=== PATIENT | male | born 1945 | race Caucasian/White ===

== ENCOUNTER 2025-10-25 16:34 | Inpatient (IN) ==
--- NOTE | 2025-10-25 16:46 | Emergency Department Note ---
Impression & Plan Acute lower GI bleeding, Abdominal pain, acute, left lower quadrant, Anticoagulant long-term use, Colitis ED Provider Note NAME: LE MENDIETA AGE: 80 SEX: M : 1945 ARRIVES VIA: Walk-In INFORMANT: Patient, the patient's son ED PROVIDER(S): Catarino Salmon DO CHIEF COMPLAINT: GI bleeding HPI: The patient is a 80-year-old male who presented to the emergency department with his son for evaluation of GI bleeding. The patient's been having constipation and left lower quadrant abdominal pain. Initially he thought it was rectal bleeding because of an external source but then started having maroon stool. He presented to the emergency department with his son for an evaluation. He does have a history of atrial fibrillation. He takes warfarin. The patient denies having any vomiting or fever. ROS: See above HPI for pertinent positives & negatives. A total of 10 systems reviewed and were otherwise negative. PAST MEDICAL HISTORY: See Below PAST SURGICAL HISTORY: See Below FAMILY HISTORY: See Below SOCIAL HISTORY: See Below HOME MEDICATIONS: See Below ALLERGIES: See Below VITALS: See Below PHYSICAL EXAMINATION: GENERAL: Patient is awake alert in no acute distress patient is resting comfortably and showing no signs of anxiety EYES: The conjunctivae are clear. The pupils are round and reactive. EARS, NOSE, MOUTH AND THROAT: The nose is without any evidence of any deformity. NECK: The neck is nontender and supple. RESPIRATORY: Normal respiratory effort is noted there is no evidence of wheezing rhonchi or rales CARDIOVASCULAR: Regular rate and rhythm noted there no murmurs rubs or gallops normal S1 normal S2. GASTROINTESTINAL: The abdomen is soft and mildly distended. There is left lower quadrant tenderness to palpation which is moderate. Rectal exam revealed gross blood per rectum. MUSCULOSKELETAL/EXTREMITIES: There is no evidence of gross deformity full range of motion is noted in the hips and shoulders. SKIN: Chronic venous stasis changes were noted. There is no calf tenderness elicited. Skin was warm and dry. NEUROLOGIC: Patient is awake alert and oriented x3 MEDICAL DECISION MAKING: The patient is a 80-year-old male who presented to the emergency department for an evaluation of rectal bleeding. The patient did have left-sided abdominal pain on physical exam. I discussed the patient's laboratory and radiographic studies with him. Ultimately the patient was found to have signs of colitis on CT. It is possible this represents some sort of diverticular bleed. The CT did not appear to show any acute bleeding or extravasation of dye. I do feel the patient would be a good candidate for inpatient management at our facility at this time. [facility] have agreed to evaluate the patient in the emergency department for further management and disposition. Triage Nursing notes reviewed. Prior medical records reviewed Vital Signs: reviewed and remarkable for no significant abnormalities Differential diagnosis: Diverticulosis, AVM, coagulopathy, colitis, inflammatory bowel disease, malignancy, Juanita-Vergara tear, esophagitis, peptic ulcer disease, variceal bleed, gastritis, epistaxis, fissure, hemorrhoids, as well as other pathologies. ER treatment provided: See below Diagnostics interpreted by me: ECG: EKG was obtained in the emergency department. My interpretation is normal sinus rhythm at 90 bpm. There is no ectopy. There is no acute ST segment abnormalities noted. QTc was 467 ms. Cardiac Monitoring: An order was placed for continuous cardiac monitoring. The monitor shows a rate of 99 bpm with sinus rhythm. Laboratory studies: As stated above and show below. Imaging studies: See below. Radiographic imaging was reviewed by myself Consultation(s): I discussed this case with Ksenia who [facility]. Past Med/Surg History Problem List (Updated 10/25/25 @ 20:43 by Catarino Salmon DO) Anticoagulant long-term use (Acute) Abdominal pain, acute, left lower quadrant (Acute) Acute lower GI bleeding (Acute) Colitis (Acute) Abdominal pain Rectal bleeding Medical History BPH (benign prostatic hyperplasia) KATE (obstructive sleep apnea) Obesity HTN (hypertension) Atrial fibrillation Surgical History History of placement of ear tubes History of hernia repair Hx of tonsillectomy History of colonoscopy Family History (Updated 10/25/25 @ 19:38 by Angela Martinez PA-C) Mother Diabetes Brother Cancer esophageal cancer Social History Smoking Status: Never smoker Preferred Language: Malian Feels Safe at Home: Yes Allergies Allergies Allergy/AdvReac Type Severity Reaction Status Date / Time No Known Allergies Allergy Unverified 10/25/25 18:05 Home Meds Home Medications Medication Instructions Recorded Confirmed amlodipine 10 mg tablet 10 mg PO DAILY 10/25/25 10/25/25 brimonidine 0.2 % eye drops 1 drp ophthalmic (eye) DIRECTED 10/25/25 10/25/25 latanoprost 0.005 % eye drops 1 drp ophthalmic (eye) HS 10/25/25 10/25/25 lisinopril 10 mg tablet 10 mg PO DAILY 10/25/25 10/25/25 omeprazole 40 mg capsule,delayed 40 mg PO DAILY 10/25/25 10/25/25 release tamsulosin 0.4 mg capsule 0.4 mg PO QPM 10/25/25 10/25/25 warfarin 5 mg tablet 5 mg PO Q OTHER DAY 10/25/25 10/25/25 warfarin 5 mg tablet 7.5 mg PO Q OTHER DAY 10/25/25 10/25/25 Results & Data (ED) Vital Signs Vital Signs - 24 hr 10/25/25 16:38 10/25/25 16:57 10/25/25 18:36 Temperature 36.7 C Temperature Source Temporal Artery Scan Pulse Rate 105 H Pulse Rate [Apical] 92 H Pulse Rhythm [Apical] Regular Pulse Strength [Apical] Normal Respiratory Rate 18 20 Respiratory Effort / Characteristics Non-Labored Spontaneous Non-Labored Spontaneous Respiratory Depth Normal Normal Respiratory Pattern Regular Blood Pressure 122/73 Blood Pressure [Right Arm] 127/78 Blood Pressure Mean 89 Blood Pressure Mean [Right Arm] 94 Pulse Oximetry 98 95 94 Oxygen Delivery Method Room Air Room Air Room Air Sepsis Recent Fever Within 48 Hours No Sepsis New/Unexplained Change in Mental Status No Sepsis Action Taken by Nursing No Action Required Home Medications Current Medication List: was personally reviewed by me Laboratory Data Attestation: I reviewed the patient's lab results. 10/25/25 16:57 10/25/25 16:57 Lab Results 10/25/25 10/25/25 10/25/25 Range/Units 16:57 17:08 17:13 WBC 22.25 H (4.8-10.8) K/ul RBC 6.00 (4.70-6.10) M/uL Hgb 18.6 H (14.0-18.0) g/dL POC Hgb 17.7 (14.0-18.0) g/dl Hct 50.6 (42.0-52.0) % POC Hct 52 (42-52) % MCV 84.3 (80.0-100.0) fL MCH 31.0 (25.0-34.0) pg MCHC 36.8 H (32.0-36.0) g/dL RDW Std Deviation 40.2 (36.4-46.3) fL RDW Coeff of [place] 13.1 (11.5-14.5) % Plt Count 239 (130-400) K/uL MPV 9.8 (9.4-12.4) fL Immature Gran % (Auto) 0.4 % Neut % (Auto) 88.6 % Lymph % (Auto) 4.2 % [place] % (Auto) 6.5 % Eos % (Auto) 0.0 % Baso % (Auto) 0.3 % Neut # (Auto) 19.72 H (1.40-6.50) K/uL Lymph # (Auto) 0.94 L (1.20-3.40) K/uL [place] # (Auto) 1.44 H (0.11-0.59) K/uL Eos # (Auto) 0.00 (0.00-0.50) K/uL Baso # (Auto) 0.06 (0.00-0.20) K/uL Immature Gran # (Auto) 0.09 (0.01-0.20) K/uL PT 30.9 H (9.0-12.0) Seconds INR 3.1 H (0.9-1.1) APTT 37 H (21-31) Seconds PTT Ratio 1.4 POC Sodium 138 (135-144) mmol/L Sodium 137 (136-145) mmol/L POC Potassium 3.7 (3.3-5.0) mmol/L Potassium 3.7 (3.5-5.1) mmol/L POC Chloride 100 L (101-112) mmol/L Chloride 102 (98-107) mmol/L Carbon Dioxide 24 (21-32) mmol/L POC Total CO2 21 L (24-31) mmol/L Anion Gap 11 (3-11) POC Anion Gap 22.0 (16-25) mmol/L POC BUN 24 H (7-18) mg/dl BUN 23 (6-23) mg/dl Creatinine 1.08 (0.6-1.4) mg/dl POC Creatinine 1.1 (0.6-1.3) mg/dl Est Cr Clr Drug Dosing Not Reportable eGFR 69.81 BUN/Creatinine Ratio 21.3 H (10-20) Glucose 191 H (70-99(Fasting)) mg/dl POC Glucose (other) 179 H (70-99) mg/dl Calcium 9.2 (8.6-10.3) mg/dl POC Ioniz Calcium Crystal 1.12 (1.12-1.32) mmol/l Total Bilirubin 2.0 H (0.2-1.0) mg/dl AST 18 (13-39) U/L ALT 13 (7-52) U/L Alkaline Phosphatase 109 H (34-104) U/L Troponin I High Sens 12.7 (0-20) pg/ml Total Protein 7.3 (6.0-8.3) gm/dl Albumin 4.2 (3.4-5.0) gm/dl Globulin 3.1 (2.5-4.0) gm/dl Albumin/Globulin Ratio 1.4 (0.9-2) Lipase 8 L (11-82) U/L Urine Color Urine Appearance (Clear) Urine pH (4.5-7.5) Ur Specific [place] (1.000-1.030) Urine Protein (Negative) Urine Glucose (UA) (Negative) Urine Ketones (Negative) Urine Blood (Negative) Urine Nitrite (Negative) Urine Bilirubin (Negative) Urine Urobilinogen (Negative) Ur Leukocyte Esterase (Negative) Urine WBC (Auto) (0-5) /hpf Urine RBC (Auto) (0-2) /hpf U Hyaline Cast (Auto) (0-2) /lpf U Epithel Cells (Auto) (0-2) /hpf Urine Bacteria (Auto) (None Seen) Urine Comment Blood Type O Positive Antibody Screen NEGATIVE 10/25/25 Range/Units 17:42 WBC (4.8-10.8) K/ul RBC (4.70-6.10) M/uL Hgb (14.0-18.0) g/dL POC Hgb (14.0-18.0) g/dl Hct (42.0-52.0) % POC Hct (42-52) % MCV (80.0-100.0) fL MCH (25.0-34.0) pg MCHC (32.0-36.0) g/dL RDW Std Deviation (36.4-46.3) fL RDW Coeff of [place]ch[place] (11.5-14.5) % Plt Count (130-400) K/uL MPV (9.4-12.4) fL Immature Gran % (Auto) % Neut % (Auto) % Lymph % (Auto) % [place] % (Auto) % Eos % (Auto) % Baso % (Auto) % Neut # (Auto) (1.40-6.50) K/uL Lymph # (Auto) (1.20-3.40) K/uL [place] # (Auto) (0.11-0.59) K/uL Eos # (Auto) (0.00-0.50) K/uL Baso # (Auto) (0.00-0.20) K/uL Immature Gran # (Auto) (0.01-0.20) K/uL PT (9.0-12.0) Seconds INR (0.9-1.1) APTT (21-31) Seconds PTT Ratio POC Sodium (135-144) mmol/L Sodium (136-145) mmol/L POC Potassium (3.3-5.0) mmol/L Potassium (3.5-5.1) mmol/L POC Chloride (101-112) mmol/L Chloride (98-107) mmol/L Carbon Dioxide (21-32) mmol/L POC Total CO2 (24-31) mmol/L Anion Gap (3-11) POC Anion Gap (16-25) mmol/L POC BUN (7-18) mg/dl BUN (6-23) mg/dl Creatinine (0.6-1.4) mg/dl POC Creatinine (0.6-1.3) mg/dl Est Cr Clr Drug Dosing eGFR BUN/Creatinine Ratio (10-20) Glucose (70-99(Fasting)) mg/dl POC Glucose (other) (70-99) mg/dl Calcium (8.6-10.3) mg/dl POC Ioniz Calcium Crystal (1.12-1.32) mmol/l Total Bilirubin (0.2-1.0) mg/dl AST (13-39) U/L ALT (7-52) U/L Alkaline Phosphatase (34-104) U/L Troponin I High Sens (0-20) pg/ml Total Protein (6.0-8.3) gm/dl Albumin (3.4-5.0) gm/dl Globulin (2.5-4.0) gm/dl Albumin/Globulin Ratio (0.9-2) Lipase (11-82) U/L Urine Color Yellow Urine Appearance Clear (Clear) Urine pH 5.5 (4.5-7.5) Ur Specific [place] 1.037 H (1.000-1.030) Urine Protein Negative (Negative) Urine Glucose (UA) 2+ H (Negative) Urine Ketones Trace H (Negative) Urine Blood 2+ H (Negative) Urine Nitrite Negative (Negative) Urine Bilirubin Negative (Negative) Urine Urobilinogen Negative (Negative) Ur Leukocyte Esterase Negative (Negative) Urine WBC (Auto) 0-5 (0-5) /hpf Urine RBC (Auto) 0-2 (0-2) /hpf U Hyaline Cast (Auto) 0-2 (0-2) /lpf U Epithel Cells (Auto) 0-2 (0-2) /hpf Urine Bacteria (Auto) None Seen (None Seen) Urine Comment Blood Type Antibody Screen Administered Medications Discontinued Medications Sodium Chloride (Nss) 500 mls @ 999 mls/hr IV .Q31M STA Stop: 10/25/25 17:14 Last Infusion: 10/25/25 17:35 Dose: Infused Documented By: anirudh Admin: 10/25/25 17:02 Dose: 999 mls/hr Documented By: anirudh Piperacillin Sod/Tazobactam Sod (Zosyn) 4.5 gm in 100 mls @ 200 mls/hr IV NOW ONE; Protocol Stop: 10/25/25 17:55 Last Infusion: 10/25/25 18:42 Dose: Infused Documented By: anirudh Admin: 10/25/25 18:07 Dose: 200 mls/hr Documented By: anirudh Ioversol (Optiray 320 125ml) 115 ml IV ONCE ONE Stop: 10/25/25 17:35 Last Admin: 10/25/25 17:34 Dose: 115 ml Documented By: CHET Imaging Data Attestation: I personally reviewed and interpreted this imaging study as follows: My Impression: CT of the abdomen and pelvis was obtained in the emergency department. My interpretation is no free air or definite bowel obstruction, final report below. Radiologist's Impression: Abdomen/Pelvis CTA 10/25/25 16:44 INDICATION: GI bleeding, rectal pain COMPARISON: None TECHNIQUE: Thin axial CT images of the abdomen and pelvis were obtained. A 3-D CT angiogram was generated from the axial data. Dose reduction according to patient size and/or automated exposure control techniques have been utilized for this exam. MIP (Maximum Intensity Pixel) images were utilized. FINDINGS: CTA ABDOMEN: LUNG BASES: Coronary artery calcifications. Small hiatal hernia. LIVER: No solid hepatic lesions. Probable hepatic steatosis. SPLEEN: Unremarkable. GALLBLADDER: Multiple gallstones noted. KIDNEYS: No hydronephrosis or nephrolithiasis. No solid renal lesions. There is 5.2 cm lower pole right renal cyst. Additional smaller right renal cysts. PANCREAS: Pancreas appears somewhat fatty replaced. ADRENAL GLANDS: Unremarkable. PROXIMAL BOWEL: Unremarkable. RETROPERITONEUM: No significant lymphadenopathy. OTHER: No abscess. VASCULAR: No evidence of aortic aneurysm or dissection. Patent celiac artery, SMA, VIET, renal arteries. No evidence of active GI bleeding. CTA PELVIS: URINARY BLADDER: Unremarkable. PELVIC ORGANS: Unremarkable. DISTAL BOWEL: Redundant sigmoid colon. Abnormal thickening Of the sigmoid colon and rectum. Haziness in the mesenteric fat adjacent to the sigmoid colon. OTHER: Mildly prominentlymph nodes in the groin areas bilaterally, possibly reactive. There is no free pelvic fluid. VASCULAR: Patent iliac arteries. IMPRESSION: Diffuse colitis changes of the sigmoid colon. Proctitis changes also noted. No abscess. No free air. Cholelithiasis. Nuclear medicine GI bleeding scan is more sensitive for detection of active GI bleeding. Electronically signed by Jose Lainez 10-25-2025 6:23 PM Discharge Plan Visit Data Chief Complaint: Rectal Pain Stated Complaint: RECTAL BLEEDING ED Provider: Catarino Salmon Discharge Problem: Acute lower GI bleeding, Abdominal pain, acute, left lower quadrant, Anticoagulant long-term use, Colitis Patient Disposition: Admitted As Inpatient Condition: Fair Discharge Instructions Interventions: ED Discharge Assessment Last Done: 10/25/25 20:14
[2025-10-25] MEDS: SODIUM CHLORIDE 0.9% 500 ML IV STA (17:02)
[2025-10-25 17:17] LABS: Hematocrit (blood only) 50.6 % (42.0-52.0); Hemoglobin 18.6 g/dL (14.0-18.0); Immature Granulocytes # (auto) 0.09 K/uL (0.01-0.20); Immature Granulocytes % (auto) 0.4 %; Mean Corpuscular Hemoglobin 31.0 pg (25.0-34.0); Mean Corpuscular Volume 84.3 fL (80.0-100.0); Platelet Count 239 K/uL (130-400); RDW Standard Deviation 40.2 fL (36.4-46.3); Red Blood Count 6.00 M/uL (4.70-6.10); White Blood Count 22.25 K/ul (4.8-10.8)
[2025-10-25 17:33] LABS: Alanine Aminotransferase 13 U/L (7-52); Albumin Globulin Ratio 1.4 (0.9-2); Albumin Level 4.2 gm/dl (3.4-5.0); Alkaline Phosphatase 109 U/L (34-104); Anion Gap 11 (3-11); Bilirubin,Total 2.0 mg/dl (0.2-1.0); Blood Urea Nitrogen 23 mg/dl (6-23); Calcium 9.2 mg/dl (8.6-10.3); Carbon Dioxide 24 mmol/L (21-32); Chloride 102 mmol/L (98-107); Globulin 3.1 gm/dl (2.5-4.0); Glucose 191 mg/dl (70-99(Fasting)); Lipase 8 U/L (11-82); Potassium 3.7 mmol/L (3.5-5.1); Sodium 137 mmol/L (136-145); Total Protein 7.3 gm/dl (6.0-8.3)
[2025-10-25] MEDS: OPTIRAY 320 125ml IV ONE (17:34)
[2025-10-25 17:48] LABS: INR 3.1 (0.9-1.1); Partial Thromboplastin Time 37 Seconds (21-31); Prothrombin Time 30.9 Seconds (9.0-12.0)
[2025-10-25 18:04] LABS: Appearance Urine Clear (Clear); Bacteria Urine Automated None Seen (None Seen); Cast Urine Automated 0-2 /lpf (0-2); Epithelial Cell Urine Auto 0-2 /hpf (0-2); Glucose Urine UA 2+ (Negative); RBC Urine Automated 0-2 /hpf (0-2); WBC Urine Automated 0-5 /hpf (0-5)
[2025-10-25] MEDS: PIPERACILLIN/TAZOBACTAM 4.5 GM/100 ML BAG IV ONE (18:07)
--- NOTE | 2025-10-25 18:24 | CT Scan Report ---
INDICATION: GI bleeding, rectal pain COMPARISON: None TECHNIQUE: Thin axial CT images of the abdomen and pelvis were obtained. A 3-D CT angiogram was generated from the axial data. Dose reduction according to patient size and/or automated exposure control techniques have been utilized for this exam. MIP (Maximum Intensity Pixel) images were utilized. FINDINGS: CTA ABDOMEN: LUNG BASES: Coronary artery calcifications. Small hiatal hernia. LIVER: No solid hepatic lesions. Probable hepatic steatosis. SPLEEN: Unremarkable. GALLBLADDER: Multiple gallstones noted. KIDNEYS: No hydronephrosis or nephrolithiasis. No solid renal lesions. There is 5.2 cm lower pole right renal cyst. Additional smaller right renal cysts. PANCREAS: Pancreas appears somewhat fatty replaced. ADRENAL GLANDS: Unremarkable. PROXIMAL BOWEL: Unremarkable. RETROPERITONEUM: No significant lymphadenopathy. OTHER: No abscess. VASCULAR: No evidence of aortic aneurysm or dissection. Patent celiac artery, SMA, VIET, renal arteries. No evidence of active GI bleeding. CTA PELVIS: URINARY BLADDER: Unremarkable. PELVIC ORGANS: Unremarkable. DISTAL BOWEL: Redundant sigmoid colon. Abnormal thickening Of the sigmoid colon and rectum. Haziness in the mesenteric fat adjacent to the sigmoid colon. OTHER: Mildly prominentlymph nodes in the groin areas bilaterally, possibly reactive. There is no free pelvic fluid. VASCULAR: Patent iliac arteries. IMPRESSION: Diffuse colitis changes of the sigmoid colon. Proctitis changes also noted. No abscess. No free air. Cholelithiasis. Nuclear medicine GI bleeding scan is more sensitive for detection of active GI bleeding. Electronically signed by Jose Lainez 10-25-2025 6:23 PM
--- NOTE | 2025-10-25 18:46 | History & Physical Report ---
Date of Service October 25, 2025 Assessment & Plan (1) Rectal bleeding: (2) Abdominal pain: (3) Colitis: Plan: Patient is 80 year old male with PMH atrial fibrillation anticoagulated on Eliquis, HTN, BPH, KATE, obesity presented to ER with c/o abdominal pain and rectal bleeding today. H/O LLQ abdominal pain x couple of months. Last 3 days constipated and today took magnesium citrate and after with bloody BMs In ER afebrile, P: 105, R: 18, BP: 122/73, 98% RA. Repeat vitals P: 92 WBC: 22, H/H: 18.6/50, INR: 3.1 CT abd/pelvis: Diffuse colitis changes of the sigmoid colon. Proctitis changes also noted. No abscess. No free air. Cholelithiasis. In ER given 500ml NSS, Zosyn NPO for now Continue Zosyn Gentle IVF Hold warfarin GI consult CBC, BMP in am #HTN BP Stable Continue amlodipine, lisinopril #Atrial fibrillation Anticoagulated on Eliquis INR: 3.1 Hold Eliquis as above Current sinus rhythm #Abnormal UA blood noted on UA Will need followed up outpatient. Pt reports started seeing urologist recently for BPH #Hyperglycemia Denies history DM Random glucose: 191 A1c in am #BPH Continue tamsulosin #KATE CPAP HS DVT Prophylaxis INR 3.1 today. monitor INR, plan SCDs when INR less than 2 Admit med tele Follows with Dr Hutson - [facility] for routine care Pt was seen and care coordinated with Dr Roach. See addendum I spent a total of 60 minutes reviewing notes, outpatient records, labs, medication, coordinating, documenting and providing care for this patient excluding time spent in the performance of separately billed services and excluding time spent by another provider/QHP. History of Present Illness Chief Complaint: rectal bleeding Primary Care Provider: NO PCP Patient is 80 year old male with PMH atrial fibrillation anticoagulated on Eliquis, HTN, BPH, KATE, obesity presented to ER with c/o abdominal pain and rectal bleeding today. Patient in town visiting family for the holiday. States has been having some intermittent LLQ abdominal pain for past couple of months and following with PCP and reports had outpatient CT pelvis that he thinks was unremarkable (report not available for review at this time). He reports is to have follow up with GI in couple of months. Patient states having constipation this week and last BM 3 days ago. Today having some LLQ discomfort. He states today drank prune juice and took 3/4 bottle of magnesium citrate. After had couple of loose BMs that were red bloody. Patient states since being in ER abdo luz pain has decreased. Denies fever/chills, diaphoresis, N/V, TELLEZ, dizziness, CP, SOB, orthopnea, palpitations, cough, weakness, extremity edema, rashes, dysuria, hematuria. Denies NSAID or aspirin use. Discussed patient with ER physician and patient given Zosyn in ER. Reports rectal exam with red/maroon color blood. Allergies Allergy/AdvReac Type Severity Reaction Status Date / Time No Known Allergies Allergy Unverified 10/25/25 18:05 Home Medications Medication Instructions Recorded Confirmed Type amlodipine 10 mg tablet 10 mg PO DAILY 10/25/25 10/25/25 History brimonidine 0.2 % eye drops 1 drp ophthalmic (eye) DIRECTED 10/25/25 10/25/25 History latanoprost 0.005 % eye drops 1 drp ophthalmic (eye) HS 10/25/25 10/25/25 History lisinopril 10 mg tablet 10 mg PO DAILY 10/25/25 10/25/25 History omeprazole 40 mg capsule,delayed 40 mg PO DAILY 10/25/25 10/25/25 History release tamsulosin 0.4 mg capsule 0.4 mg PO QPM 10/25/25 10/25/25 History warfarin 5 mg tablet 5 mg PO Q OTHER DAY 10/25/25 10/25/25 History warfarin 5 mg tablet 7.5 mg PO Q OTHER DAY 10/25/25 10/25/25 History Past Med/Surg History Problem List (Updated 10/25/25 @ 20:43 by Catarino Salmon DO) Anticoagulant long-term use (Acute) Abdominal pain, acute, left lower quadrant (Acute) Acute lower GI bleeding (Acute) Colitis (Acute) Abdominal pain Rectal bleeding Medical History BPH (benign prostatic hyperplasia) KATE (obstructive sleep apnea) Obesity HTN (hypertension) Atrial fibrillation Surgical History History of placement of ear tubes History of hernia repair Hx of tonsillectomy History of colonoscopy Family History (Updated 10/25/25 @ 19:38 by Angela Martinez PA-C) Mother Diabetes Brother Cancer esophageal cancer Social History Smoking Status: Never smoker Hx Alcohol Use: No Hx Substance Use: No Preferred Language: Ecuadorean Communication Ability: Effective It Generalist Required: No Beliefs That Will Affect Care: None Current Living Situation: Alone Other Information That Helps Us Care for You: No Feels Safe at Home: Yes Safety Concerns: Feels Safe At This Time Assistive Devices: CPAP and Glasses Review of Systems Review of Systems: All systems reviewed & are unremarkable except as noted in HPI & below Physical Exam Physical Exam: PE per Dr Roach Results & Data Results & Data Vital Signs (Past 12 Hours) Vital Signs Temp Pulse Resp BP Pulse Ox O2 Del Method 10/25/25 16:57 95 Room Air 10/25/25 16:38 36.7 C 105 H 18 122/73 98 Room Air Laboratory Results Short CBC 10/25/25 Range/Units 16:57 WBC 22.25 H (4.8-10.8) K/ul Hgb 18.6 H (14.0-18.0) g/dL Hct 50.6 (42.0-52.0) % Plt Count 239 (130-400) K/uL BMP 10/25/25 16:57 Sodium 137 Potassium 3.7 Chloride 102 Carbon Dioxide 24 BUN 23 Creatinine 1.08 Glucose 191 H Calcium 9.2 Liver Function 10/25/25 Range/Units 16:57 Total Bilirubin 2.0 H (0.2-1.0) mg/dl AST 18 (13-39) U/L ALT 13 (7-52) U/L Alkaline Phosphatase 109 H (34-104) U/L Albumin 4.2 (3.4-5.0) gm/dl Urine 10/25/25 Range/Units 17:42 Urine Color Yellow Urine Appearance Clear (Clear) Urine pH 5.5 (4.5-7.5) Ur Specific [place] 1.037 H (1.000-1.030) Urine Protein Negative (Negative) Urine Glucose (UA) 2+ H (Negative) Diagnostic Findings Abdomen/Pelvis CTA 10/25/25 16:44 INDICATION: GI bleeding, rectal pain COMPARISON: None TECHNIQUE: Thin axial CT images of the abdomen and pelvis were obtained. A 3-D CT angiogram was generated from the axial data. Dose reduction according to patient size and/or automated exposure control techniques have been utilized for this exam. MIP (Maximum Intensity Pixel) images were utilized. FINDINGS: CTA ABDOMEN: LUNG BASES: Coronary artery calcifications. Small hiatal hernia. LIVER: No solid hepatic lesions. Probable hepatic steatosis. SPLEEN: Unremarkable. GALLBLADDER: Multiple gallstones noted. KIDNEYS: No hydronephrosis or nephrolithiasis. No solid renal lesions. There is 5.2 cm lower pole right renal cyst. Additional smaller right renal cysts. PANCREAS: Pancreas appears somewhat fatty replaced. ADRENAL GLANDS: Unremarkable. PROXIMAL BOWEL: Unremarkable. RETROPERITONEUM: No significant lymphadenopathy. OTHER: No abscess. VASCULAR: No evidence of aortic aneurysm or dissection. Patent celiac artery, SMA, VIET, renal arteries. No evidence of active GI bleeding. CTA PELVIS: URINARY BLADDER: Unremarkable. PELVIC ORGANS: Unremarkable. DISTAL BOWEL: Redundant sigmoid colon. Abnormal thickening Of the sigmoid colon and rectum. Haziness in the mesenteric fat adjacent to the sigmoid colon. OTHER: Mildly prominentlymph nodes in the groin areas bilaterally, possibly reactive. There is no free pelvic fluid. VASCULAR: Patent iliac arteries. IMPRESSION: Diffuse colitis changes of the sigmoid colon. Proctitis changes also noted. No abscess. No free air. Cholelithiasis. Nuclear medicine GI bleeding scan is more sensitive for detection of active GI bleeding. Electronically signed by Jose Lainez 10-25-2025 6:23 PM ECG Additional Comments: EKG sinus rhythm, rate 90 per my interpretation Supervising Physician Co-Signing Physician Notes Patient is a 80-year-old male with history of A-fib on anticoagulation with warfarin, KATE, BPH, hypertension, hemorrhoids and no other significant past medical history presents with history of abdominal pain associated with constipation and rectal bleed. Patient states that he has been constipated for the past 3 days and so took mag citrate along with prune juice this morning after which patient had diarrhea associated with bright red blood rectal bleed. He admits to have hemorrhoids in the past and denies any history of diverticulosis, polyps. He also denies any use of NSAIDs. His abdominal pain is predominantly left lower quadrant, currently improved 2/10 while in ED. His last warfarin dose was yesterday. Denies any nausea, vomiting, fever, chills, chest pain, dyspnea. Please review HPI for complete details of presentation. I personally reviewed blood work and imaging studies. Noted leukocytosis 22k, hemoglobin 18.6, hematocrit 50.6, platelets 239K, INR 3.1, BUN 23, creatinine 1.08, glucose 191, total bilirubin 2.0, normal LFTs, alkaline phosphatase 109, lipase 8. Urinalysis suggestive of microscopic hematuria with glucosuria. CT abdomen showed diffuse colitis of the sigmoid colon and proctitis. Also noted cholelithiasis. EKG showed normal sinus rhythm, QTc 467. Physical Exam: Vitals signs as noted above General Appearance: Obese, no apparent distress Head: normocephalic, Atraumatic Eyes: normal inspection, EOMI Neck: supple, Trachea midline Respiratory/Chest: Normal breath sounds, CTA, No accessory muscle use Cardiovascular: S1, S2, No murmur Abdomen/GI:Soft, distended, left lower quadrant tender, Bowel sounds diminished, no guarding or rigidity Extremities/Musculoskeletal:normal inspection, no edema Neurologic/Psych:AAOX3, grossly no focal neurological deficits Skin: normal color, warm Rectal bleed Proctocolitis Constipation SIRS, Possible spesis H/O hemorrhoids GI bleed in setting of warfarin use Will keep him n.p.o. Empirically started on IV Zosyn Obtain blood cultures IV fluids, hold warfarin, avoid NSAIDs Pain control as needed GI consulted Monitor H&H and transfuse as needed Stool studies pending Microscopic hematuria H/O BPH Bladder scan as needed Continue Flomax Advised to follow-up with urologist outpatient for cystoscopy Hyperglycemia Check HbA1c to rule out diabetes mellitus Morbid obesity BMI 42 KATE Continue CPAP I personally interviewed and examined the patient at bedside. I have reviewed the advanced practitioner's documentation on the date of service referred in note and agree with plan. Patient's care is coordinated with Angela Martinez PA-C. Please refer to the documentation above for details of patient's presentation and for discussion of other issues. I spent a total [id number] coordinating, documenting, and providing care for this patient excluding time spent in the performance of separately billed services or time spent by another provider/QHP.
[2025-10-25] MEDS ORDERED: POLYETHYLENE (MIRALAX) 17 GM PACK PO PRN (20:33)
[2025-10-25] MEDS ORDERED: SODIUM CHLORIDE 0.9% 100 ML IV PRN (20:33)
[2025-10-25] MEDS ORDERED: ACETAMINOPHEN 325 MG TAB PO PRN (20:33)
[2025-10-25] MEDS: NSS + 20MEQ KCL 20 MEQ/1,000 ML BAG IV SCH (21:04)
[2025-10-25] MEDS: TAMSULOSIN HCL 0.4 MG CAP PO SCH (21:07)
[2025-10-25] MEDS: BRIMONIDINE TARTRATE 0.2% 5ML OP SCH (21:08)
[2025-10-25] MEDS: LATANOPROST 0.005% OP SOLN 2.5 ML BTL OP SCH (21:09)
[2025-10-25] MEDS: PIPERACILLIN/TAZOBACTAM 4.5 GM/100 ML BAG IV SCH (23:14)
[2025-10-25 23:15] LABS: Hematocrit (blood only) 45.2 % (42.0-52.0); Hemoglobin 16.5 g/dL (14.0-18.0)
[2025-10-26] MEDS: ONDANSETRON INJ 2 MG/ML 2 ML VIAL IV PRN (00:36)
[2025-10-26 06:32] LABS: Hematocrit (blood only) 47.4 % (42.0-52.0); Hemoglobin 16.9 g/dL (14.0-18.0); Immature Granulocytes # (auto) 0.10 K/uL (0.01-0.20); Immature Granulocytes % (auto) 0.4 %; Mean Corpuscular Hemoglobin 30.6 pg (25.0-34.0); Mean Corpuscular Volume 85.9 fL (80.0-100.0); Platelet Count 237 K/uL (130-400); RDW Standard Deviation 41.6 fL (36.4-46.3); Red Blood Count 5.52 M/uL (4.70-6.10); White Blood Count 23.02 K/ul (4.8-10.8)
[2025-10-26 07:02] LABS: INR 3.2 (0.9-1.1); Prothrombin Time 31.4 Seconds (9.0-12.0)
[2025-10-26 07:18] LABS: Alanine Aminotransferase 9.0 U/L (7-52); Albumin Globulin Ratio 1.7 (0.9-2); Albumin Level 4.0 gm/dl (3.4-5.0); Alkaline Phosphatase 82.0 U/L (34-104); Anion Gap 10.0 (3-11); Bilirubin,Total 2.9 mg/dl (0.2-1.0); Blood Urea Nitrogen 20.0 mg/dl (6-23); Calcium 8.6 mg/dl (8.6-10.3); Carbon Dioxide 23.0 mmol/L (21-32); Chloride 103.0 mmol/L (98-107); Creatinine Clr Calc Pharmacy 74.8 ml/min; Globulin 2.3 gm/dl (2.5-4.0); Glucose 151.0 mg/dl (70-99(Fasting)); Magnesium 2.2 mg/dl (1.7-2.4); Potassium 4.2 mmol/L (3.5-5.1); Sodium 136.0 mmol/L (136-145); Total Protein 6.3 gm/dl (6.0-8.3)
--- NOTE | 2025-10-26 08:23 | Electrocardiogram Report ---
Test Reason : Blood Pressure : */* mmHG Vent. Rate : 90 BPM Atrial Rate : 90 BPM P-R Int : 178 ms QRS Dur : 76 ms QT Int : 382 ms P-R-T Axes : 41 3 23 degrees QTcB Int : 467 ms Normal sinus rhythm Normal ECG No previous ECGs available Confirmed by Demetrius Rosa ([id number]) on 10/26/2025 8:22:29 AM Referred By: Confirmed By: Demetrius Rosa
[2025-10-26] MEDS: cefTRIAXone SODIUM 2,000 MG/50 ML BAG IV STA (08:34)
[2025-10-26 08:36] LABS: Hemoglobin A1C 5.6 % (4.5-5.6)
[2025-10-26] MEDS: metroNIDAZOLE 500 MG/100 ML BAG IV SCH (09:07)
--- NOTE | 2025-10-26 10:06 | Gastrointestinal Consultation ---
Date of Consultation October 26, 2025 Assessment & Plan (1) Acute lower GI bleeding: I suspect he has had ischemic colitis related to taking cathartic in magnesium citrate. It is also possible he has an acute infectious enteritis. He has a leukocytosis and either of these can lead to that. I don't think emergent colonoscopy is warranted especially with warfarin usage but I do think he should have one electively. He is improving so I think if he continues to improve over the next 24 hours and leukocytosis starts to resolve then he can probably go home to follow with his local GI doc. History of Present Illness Reason for Consultation: rectal bleeding, colitis on CT Attending Physician: Parish Urrutia, DO History of Present Illness 80 year old man who was here visiting his son for the holidays. He had not had a bowel movement in three days so he took prune juice and mag citrate. When that started working he had diarrhea and a lot of bright red blood. He tells me his pain is better today and the bleeding is much less and he is seeing brown. His last colonoscopy was six years ago and he was told he was good for ten years. Of note he does take warfarin for a fib. Allergies Allergy/AdvReac Type Severity Reaction Status Date / Time No Known Allergies Allergy Unverified 10/25/25 18:05 Home Medications Medication Instructions Recorded Confirmed Type amlodipine 10 mg tablet 10 mg PO DAILY 10/25/25 10/25/25 History brimonidine 0.2 % eye drops 1 drp ophthalmic (eye) DIRECTED 10/25/25 10/25/25 History latanoprost 0.005 % eye drops 1 drp ophthalmic (eye) HS 10/25/25 10/25/25 History lisinopril 10 mg tablet 10 mg PO DAILY 10/25/25 10/25/25 History omeprazole 40 mg capsule,delayed 40 mg PO DAILY 10/25/25 10/25/25 History release tamsulosin 0.4 mg capsule 0.4 mg PO QPM 10/25/25 10/25/25 History warfarin 5 mg tablet 5 mg PO Q OTHER DAY 10/25/25 10/25/25 History warfarin 5 mg tablet 7.5 mg PO Q OTHER DAY 10/25/25 10/25/25 History Patient History Medical History BPH (benign prostatic hyperplasia) KATE (obstructive sleep apnea) Obesity HTN (hypertension) Atrial fibrillation Surgical History History of placement of ear tubes History of hernia repair Hx of tonsillectomy History of colonoscopy Family History Mother Diabetes Brother Cancer esophageal cancer Social History Smoking Status: Never smoker Hx Alcohol Use: No Hx Substance Use: No Preferred Language: Thai Communication Ability: Effective Rad Tech Required: No Beliefs That Will Affect Care: None Current Living Situation: Alone Other Information That Helps Us Care for You: No Feels Safe at Home: Yes Safety Concerns: Feels Safe At This Time Assistive Devices: CPAP and Glasses Review of Systems Review of Systems: All systems reviewed & are unremarkable except as noted in HPI & below Physical Exam Physical Exam: Pleasant elderly man in no distress Constitutional: WD/WN, vitals as above Respiratory: normal respiratory effort, lungs clear to auscultation Cardiovascular: RRR, no murmur, no edema Gastrointestinal (Abdomen): normal bowel sounds, soft, nontender, no hepatosplenomegaly Results & Data Vital Signs (Past 12 Hours) Vital Signs Temp Pulse Pulse Resp BP Pulse Ox O2 Del Method 10/26/25 07:30 36.6 C 77 20 130/75 92 Room Air 10/26/25 07:00 73 10/26/25 03:49 36.6 C 73 19 115/72 95 Room Air 10/26/25 00:30 Room Air 10/26/25 00:08 78 20 96 10/25/25 23:09 36.8 C 76 19 124/72 93 Room Air 10/25/25 22:34 10/25/25 22:01 94 H FiO2 10/26/25 07:30 10/26/25 07:00 10/26/25 03:49 10/26/25 00:30 10/26/25 00:08 21 10/25/25 23:09 10/25/25 22:34 21 10/25/25 22:01 Laboratory Results 10/26/25 10/25/25 10/25/25 Range/Units 06:11 22:53 17:42 WBC 23.02 H (4.8-10.8) K/ul RBC 5.52 (4.70-6.10) M/uL Hgb 16.9 16.5 (14.0-18.0) g/dL POC Hgb (14.0-18.0) g/dl Hct 47.4 45.2 (42.0-52.0) % POC Hct (42-52) % MCV 85.9 (80.0-100.0) fL MCH 30.6 (25.0-34.0) pg MCHC 35.7 (32.0-36.0) g/dL RDW Std Deviation 41.6 (36.4-46.3) fL RDW Coeff of [place] 13.4 (11.5-14.5) % Plt Count 237 (130-400) K/uL MPV 10.3 (9.4-12.4) fL Immature Gran % (Auto) 0.4 % Neut % (Auto) 76.3 % Lymph % (Auto) 14.5 % [place] % (Auto) 8.5 % Eos % (Auto) 0.0 % Baso % (Auto) 0.3 % Neut # (Auto) 17.56 H (1.40-6.50) K/uL Lymph # (Auto) 3.33 (1.20-3.40) K/uL [place] # (Auto) 1.96 H (0.11-0.59) K/uL Eos # (Auto) 0.01 (0.00-0.50) K/uL Baso # (Auto) 0.06 (0.00-0.20) K/uL Immature Gran # (Auto) 0.10 (0.01-0.20) K/uL PT 31.4 H (9.0-12.0) Seconds INR 3.2 H (0.9-1.1) APTT (21-31) Seconds PTT Ratio POC Sodium (135-144) mmol/L Sodium 136 (136-145) mmol/L POC Potassium (3.3-5.0) mmol/L Potassium 4.2 (3.5-5.1) mmol/L POC Chloride (101-112) mmol/L Chloride 103 (98-107) mmol/L Carbon Dioxide 23 (21-32) mmol/L POC Total CO2 (24-31) mmol/L Anion Gap 10 (3-11) POC Anion Gap (16-25) mmol/L POC BUN (7-18) mg/dl BUN 20 (6-23) mg/dl Creatinine 1.04 (0.6-1.4) mg/dl POC Creatinine (0.6-1.3) mg/dl Est Cr Clr Drug Dosing 74.8 eGFR 73.04 BUN/Creatinine Ratio 19.2 (10-20) Glucose 151 H (70-99(Fasting)) mg/dl POC Glucose (other) (70-99) mg/dl Estimat Average Glucose 114 mg/dl Hemoglobin A1c 5.6 (4.5-5.6) % Calcium 8.6 (8.6-10.3) mg/dl POC Ioniz Calcium Crystal (1.12-1.32) mmol/l Magnesium 2.2 (1.7-2.4) mg/dl Total Bilirubin 2.9 H (0.2-1.0) mg/dl AST 16 (13-39) U/L ALT 9 (7-52) U/L Alkaline Phosphatase 82 (34-104) U/L Troponin I High Sens (0-20) pg/ml Total Protein 6.3 (6.0-8.3) gm/dl Albumin 4.0 (3.4-5.0) gm/dl Globulin 2.3 L (2.5-4.0) gm/dl Albumin/Globulin Ratio 1.7 (0.9-2) Lipase (11-82) U/L Urine Color Yellow Urine Appearance Clear (Clear) Urine pH 5.5 (4.5-7.5) Ur Specific [place] 1.037 H (1.000-1.030) Urine Protein Negative (Negative) Urine Glucose (UA) 2+ H (Negative) Urine Ketones Trace H (Negative) Urine Blood 2+ H (Negative) Urine Nitrite Negative (Negative) Urine Bilirubin Negative (Negative) Urine Urobilinogen Negative (Negative) Ur Leukocyte Esterase Negative (Negative) Urine WBC (Auto) 0-5 (0-5) /hpf Urine RBC (Auto) 0-2 (0-2) /hpf U Hyaline Cast (Auto) 0-2 (0-2) /lpf U Epithel Cells (Auto) 0-2 (0-2) /hpf Urine Bacteria (Auto) None Seen (None Seen) Urine Comment Blood Type Blood Type Recheck O Positive Antibody Screen 10/25/25 10/25/25 10/25/25 Range/Units 17:13 17:08 16:57 WBC 22.25 H (4.8-10.8) K/ul RBC 6.00 (4.70-6.10) M/uL Hgb 18.6 H (14.0-18.0) g/dL POC Hgb 17.7 (14.0-18.0) g/dl Hct 50.6 (42.0-52.0) % POC Hct 52 (42-52) % MCV 84.3 (80.0-100.0) fL MCH 31.0 (25.0-34.0) pg MCHC 36.8 H (32.0-36.0) g/dL RDW Std Deviation 40.2 (36.4-46.3) fL RDW Coeff of [place] 13.1 (11.5-14.5) % Plt Count 239 (130-400) K/uL MPV 9.8 (9.4-12.4) fL Immature Gran % (Auto) 0.4 % Neut % (Auto) 88.6 % Lymph % (Auto) 4.2 % [place] % (Auto) 6.5 % Eos % (Auto) 0.0 % Baso % (Auto) 0.3 % Neut # (Auto) 19.72 H (1.40-6.50) K/uL Lymph # (Auto) 0.94 L (1.20-3.40) K/uL [place] # (Auto) 1.44 H (0.11-0.59) K/uL Eos # (Auto) 0.00 (0.00-0.50) K/uL Baso # (Auto) 0.06 (0.00-0.20) K/uL Immature Gran # (Auto) 0.09 (0.01-0.20) K/uL PT 30.9 H (9.0-12.0) Seconds INR 3.1 H (0.9-1.1) APTT 37 H (21-31) Seconds PTT Ratio 1.4 POC Sodium 138 (135-144) mmol/L Sodium 137 (136-145) mmol/L POC Potassium 3.7 (3.3-5.0) mmol/L Potassium 3.7 (3.5-5.1) mmol/L POC Chloride 100 L (101-112) mmol/L Chloride 102 (98-107) mmol/L Carbon Dioxide 24 (21-32) mmol/L POC Total CO2 21 L (24-31) mmol/L Anion Gap 11 (3-11) POC Anion Gap 22.0 (16-25) mmol/L POC BUN 24 H (7-18) mg/dl BUN 23 (6-23) mg/dl Creatinine 1.08 (0.6-1.4) mg/dl POC Creatinine 1.1 (0.6-1.3) mg/dl Est Cr Clr Drug Dosing Not Reportable eGFR 69.81 BUN/Creatinine Ratio 21.3 H (10-20) Glucose 191 H (70-99(Fasting)) mg/dl POC Glucose (other) 179 H (70-99) mg/dl Estimat Average Glucose mg/dl Hemoglobin A1c (4.5-5.6) % Calcium 9.2 (8.6-10.3) mg/dl POC Ioniz Calcium Crystal 1.12 (1.12-1.32) mmol/l Magnesium (1.7-2.4) mg/dl Total Bilirubin 2.0 H (0.2-1.0) mg/dl AST 18 (13-39) U/L ALT 13 (7-52) U/L Alkaline Phosphatase 109 H (34-104) U/L Troponin I High Sens 12.7 (0-20) pg/ml Total Protein 7.3 (6.0-8.3) gm/dl Albumin 4.2 (3.4-5.0) gm/dl Globulin 3.1 (2.5-4.0) gm/dl Albumin/Globulin Ratio 1.4 (0.9-2) Lipase 8 L (11-82) U/L Urine Color Urine Appearance (Clear) Urine pH (4.5-7.5) Ur Specific [place] (1.000-1.030) Urine Protein (Negative) Urine Glucose (UA) (Negative) Urine Ketones (Negative) Urine Blood (Negative) Urine Nitrite (Negative) Urine Bilirubin (Negative) Urine Urobilinogen (Negative) Ur Leukocyte Esterase (Negative) Urine WBC (Auto) (0-5) /hpf Urine RBC (Auto) (0-2) /hpf U Hyaline Cast (Auto) (0-2) /lpf U Epithel Cells (Auto) (0-2) /hpf Urine Bacteria (Auto) (None Seen) Urine Comment Blood Type O Positive Blood Type Recheck Antibody Screen NEGATIVE Diagnostic Findings Abdomen/Pelvis CTA 10/25/25 16:44 INDICATION: GI bleeding, rectal pain COMPARISON: None TECHNIQUE: Thin axial CT images of the abdomen and pelvis were obtained. A 3-D CT angiogram was generated from the axial data. Dose reduction according to patient size and/or automated exposure control techniques have been utilized for this exam. MIP (Maximum Intensity Pixel) images were utilized. FINDINGS: CTA ABDOMEN: LUNG BASES: Coronary artery calcifications. Small hiatal hernia. LIVER: No solid hepatic lesions. Probable hepatic steatosis. SPLEEN: Unremarkable. GALLBLADDER: Multiple gallstones noted. KIDNEYS: No hydronephrosis or nephrolithiasis. No solid renal lesions. There is 5.2 cm lower pole right renal cyst. Additional smaller right renal cysts. PANCREAS: Pancreas appears somewhat fatty replaced. ADRENAL GLANDS: Unremarkable. PROXIMAL BOWEL: Unremarkable. RETROPERITONEUM: No significant lymphadenopathy. OTHER: No abscess. VASCULAR: No evidence of aortic aneurysm or dissection. Patent celiac artery, SMA, VIET, renal arteries. No evidence of active GI bleeding. CTA PELVIS: URINARY BLADDER: Unremarkable. PELVIC ORGANS: Unremarkable. DISTAL BOWEL: Redundant sigmoid colon. Abnormal thickening Of the sigmoid colon and rectum. Haziness in the mesenteric fat adjacent to the sigmoid colon. OTHER: Mildly prominentlymph nodes in the groin areas bilaterally, possibly reactive. There is no free pelvic fluid. VASCULAR: Patent iliac arteries. IMPRESSION: Diffuse colitis changes of the sigmoid colon. Proctitis changes also noted. No abscess. No free air. Cholelithiasis. Nuclear medicine GI bleeding scan is more sensitive for detection of active GI bleeding. Electronically signed by Jose Lainez 10-25-2025 6:23 PM
--- NOTE | 2025-10-26 10:10 | Hospitalist Progress Note ---
<Statement entered by Parihs Urrutia, DO - 10/26/25 14:48> Suspect ischemic colitis but will cover for infectious with ctx and flagyl. no indication for zosyn Appreciate GI input Patient seen and examined Agree with ASHTYN I spent a total of 21 minutes coordinating, documenting, and providing care for this patient excluding time spent in the performance of separately billed s ervices. This included personally reviewing all current laboratories and imaging studies, medical reconciliation, outpatient chart review and discussion with specialists Date of Service October 26, 2025 Assessment & Plan (1) Acute lower GI bleeding: (2) Colitis: Plan: Patient is 80 year old male with PMH atrial fibrillation anticoagulated on Eliquis, HTN, BPH, KATE, obesity presented to ER with c/o abdominal pain and rectal bleeding today. H/O LLQ abdominal pain x couple of months. Last 3 days constipated and today took magnesium citrate and after with bloody BMs #Lower GI bleed 2/2 ischemic bowel vs infectious etiology Presented w/ abd pain and rectal bleeding x 1 day following Mag Citrate admin for constipation CT abd/pelvis: Diffuse colitis changes of the sigmoid colon. Proctitis changes also noted. No abscess. No free air. Cholelithiasis. Leukocytosis 22K-> 23K today; initially treated with Zosyn and discontinued today-> will treat with Ceftriaxone and Flagyl Hemoglobin stable 16.9, INR: 3.2 today-> holding home warfarin; trend INR and resume when rectal bleeding subsides GI consulted today- no immediate need for colonoscopy, treat medically; recommend elective colonoscopy outpatient Gentle IVF and advance to clears today #HTN BP Stable 130/75 Continue amlodipine, lisinopril #Atrial fibrillation Anticoagulated on Warfarin; follows anticoag clinic INR: 3.2 today Hold Warfarin as above NSR on tele #Abnormal UA blood noted on UA Will need followed up outpatient. Pt reports started seeing urologist recently for BPH #KATE CPAP HS #Hyperglycemia- improved Denies history DM Random glucose: 191-> 151 today A1c 5.6% today #BPH Continue tamsulosin DVT Prophylaxis INR 3.1 today. monitor INR, plan SCDs when INR less than 2 Admit med tele Follows with Dr Hutson - [facility] for routine care Pt was seen and care coordinated with Dr. Urrutia. See addendum I spent a total of 40 minutes reviewing notes, outpatient records, labs, medication, coordinating, documenting and providing care for this patient excluding time spent in the performance of separately billed services and excluding time spent by another provider/QHP. (3) Rectal bleeding: Admission and Anticipated Discharge Date Admission Date: October 25, 2025 Subjective Patient seen and examined at bedside. Complaining of rectal bleeding with bowel movements this morning. Has LUQ tenderness, ordered for tylenol but has not taken any yet. Agreeable to having pain meds if needed. Denies headache, lightheadedness, dizziness, chest pain, shortness of breath, nausea, numbness or tingling, weakness to lower legs. Review of Systems Review of Systems: All systems reviewed & are unremarkable except as noted in Subjective Physical Exam Physical Exam: VITALS: Reviewed. WEIGHT/BMI reviewed. GEN: Healthy appearing, well-developed, NAD. PSYCH: Good Judgment. AOx3. Normal memory, mood, and affect. HEENT -Head: NC/AT; -Eyes: PERRL, EOMI. No discharge or redn ess; -Ears: External ears are normal. -Nose: Normal nares. -Mouth and throat: MMM. Normal gums, muc kate, palate,. Good dentition. NECK: Supple, with no masses. CV: Sinus rhythm on tele, S1/S2 regular and without murmur, no swelling LUNGS: CTAB, no w/r/c. NAD ABD: Soft, tender to LUQ, hypoactive BS, no masses or organomegaly. : N/A SKIN: Warm, well perfused. No skin rashes or abnormal lesions. MSK: No deformities, Normal gait. EXT: No clubbing, cyanosis, or edema. NEURO: Ambulating with no limitations. Normal muscle strength and tone. No focal deficits. Results & Data Results & Data Vital Signs (Past 12 Hours) Vital Signs Temp Pulse Pulse Resp BP Pulse Ox O2 Del Method 10/26/25 07:30 36.6 C 77 20 130/75 92 Room Air 10/26/25 07:00 73 10/26/25 03:49 36.6 C 73 19 115/72 95 Room Air 10/26/25 00:30 Room Air 10/26/25 00:08 78 20 96 10/25/25 23:09 36.8 C 76 19 124/72 93 Room Air 10/25/25 22:34 FiO2 10/26/25 07:30 10/26/25 07:00 10/26/25 03:49 10/26/25 00:30 10/26/25 00:08 21 10/25/25 23:09 10/25/25 22:34 21 Laboratory Results Short CBC 10/25/25 10/25/25 10/26/25 Range/Units 16:57 22:53 06:11 WBC 22.25 H 23.02 H (4.8-10.8) K/ul Hgb 18.6 H 16.5 16.9 (14.0-18.0) g/dL Hct 50.6 45.2 47.4 (42.0-52.0) % Plt Count 239 237 (130-400) K/uL BMP 10/25/25 10/26/25 16:57 06:11 Sodium 137 136 Potassium 3.7 4.2 Chloride 102 103 Carbon Dioxide 24 23 BUN 23 20 Creatinine 1.08 1.04 Glucose 191 H 151 H Calcium 9.2 8.6 Liver Function 10/25/25 10/26/25 Range/Units 16:57 06:11 Total Bilirubin 2.0 H 2.9 H (0.2-1.0) mg/dl AST 18 16 (13-39) U/L ALT 13 9 (7-52) U/L Alkaline Phosphatase 109 H 82 (34-104) U/L Albumin 4.2 4.0 (3.4-5.0) gm/dl Urine 10/25/25 Range/Units 17:42 Urine Color Yellow Urine Appearance Clear (Clear) Urine pH 5.5 (4.5-7.5) Ur Specific [place] 1.037 H (1.000-1.030) Urine Protein Negative (Negative) Urine Glucose (UA) 2+ H (Negative)
[2025-10-26] MEDS: TIMOLOL MALEATE 0.5% OP SOLN 5 ML BTL OPB SCH (11:27)
[2025-10-26] MEDS: COUGH DROP (SUGAR FREE) LOZ 24 LOZ/1 BOX BUCCAL PRN (22:38)
[2025-10-27 03:57] LABS: Cdiff Toxin B Gene (2yr or >) Negative Cdiff Gene (Neg)
[2025-10-27 04:29] LABS: Adenovirus F 40/41 PCR Not Detected (NotDetected); Campylobacter PCR Not Detected (NotDetected); Enteroaggregative E.coli(EAEC) Not Detected (NotDetected); Shiga-like Toxin E.coli (STEC) Not Detected (NotDetected); Vibrio species PCR Not Detected (NotDetected)
[2025-10-27 06:55] LABS: Hematocrit (blood only) 41.1 % (42.0-52.0); Hemoglobin 14.4 g/dL (14.0-18.0); Mean Corpuscular Hemoglobin 31.0 pg (25.0-34.0); Mean Corpuscular Volume 88.4 fL (80.0-100.0); Platelet Count 188 K/uL (130-400); RDW Standard Deviation 43.5 fL (36.4-46.3); Red Blood Count 4.65 M/uL (4.70-6.10); White Blood Count 17.55 K/ul (4.8-10.8)
[2025-10-27 07:22] LABS: Anion Gap 6.0 (3-11); Blood Urea Nitrogen 20.0 mg/dl (6-23); Calcium 7.9 mg/dl (8.6-10.3); Carbon Dioxide 24.0 mmol/L (21-32); Chloride 105.0 mmol/L (98-107); Creatinine Clr Calc Pharmacy 81.6 ml/min; Glucose 135.0 mg/dl (70-99(Fasting)); Potassium 3.8 mmol/L (3.5-5.1); Sodium 135.0 mmol/L (136-145)
--- NOTE | 2025-10-27 07:42 | Hospitalist Progress Note ---
<Statement entered by Parish Urrutia, DO - 10/27/25 13:10> CLinically improving. tolerated CLD. advance to solids today. anticipate DC home tomorrow. he has a GI doctor and will f/u wiht them as OP Patient seen and examined Agree with ASHTYN I spent a total of 21minutes coordinating, documenting, and providing care for this patient excluding time spent in the performance of separately billed services. This included personally reviewing all current laboratories and imaging studies, medical reconciliation, outpatient chart review and discussion with specialists Date of Service October 27, 2025 Assessment & Plan (1) Acute lower GI bleeding: (2) Colitis: Plan: Patient is 80 year old male with PMH atrial fibrillation anticoagulated on Eliquis, HTN, BPH, KATE, obesity presented to ER with c/o abdominal pain and rectal bleeding today. H/O LLQ abdominal pain x couple of months. Last 3 days constipated and today took magnesium citrate and after with bloody BMs #Lower GI bleed 2/2 ischemic bowel vs infectious etiology Presented w/ abd pain and rectal bleeding x 1 day following Mag Citrate admin for constipation CT abd/pelvis: Diffuse colitis changes of the sigmoid colon. Proctitis changes also noted. No abscess. No free air. Cholelithiasis. Leukocytosis 22K-> 23K->17.5K today; treating with Ceftriaxone and Flagyl Hemoglobin stable 14.4, INR: 3.2 on admission-> holding home warfarin; trend INR and resume when rectal bleeding subsides GI consulted today- no immediate need for colonoscopy, treat medically; recommend elective colonoscopy outpatient Advance to low fiber today; possible d/c today if medially stable #HTN BP Stable 130/75 Continue amlodipine, lisinopril #Atrial fibrillation Anticoagulated on Warfarin; follows anticoag clinic INR: 3.2 today Hold Warfarin as above NSR on tele #Abnormal UA blood noted on UA Will need followed up outpatient. Pt reports started seeing urologist recently for BPH #KATE CPAP HS #Hyperglycemia- improved Denies history DM Random glucose: 191-> 151 today A1c 5.6% today #BPH Continue tamsulosin DVT Prophylaxis INR 3.1 today. monitor INR, plan SCDs when INR less than 2 Admit med tele Follows with Dr Hutson - [facility] for routine care Pt was seen and care coordinated with Dr. Urrutia. See addendum I spent a total of 40 minutes reviewing notes, outpatient records, labs, medication, coordinating, documenting and providing care for this patient excluding time spent in the performance of separately billed services and excluding time spent by another provider/QHP. (3) Rectal bleeding: Admission and Anticipated Discharge Date Admission Date: October 25, 2025 Subjective Patient seen and examined at bedside. Reports decreased rectal bleeding with bowel movements since yesterday. Has nausea this morning and some abdominal pain that he feels is improving. He looks forward to advancing his diet with lunch today. Discussed continuing IV antibiotics today, oral fluids, and advancing diet with possible discharge tomorrow assuming he continues to show clinical improvement and rectal bleeding has stopped. Had a 8 beat run of Vtach yesterday when using the bathroom, asymptomatic. NSR following. Mag 2.1. Sinus rhythm on the monitor today. No chest pain. Denies headache, lightheadedness, dizziness, chest pain, shortness of breath, numbness or tingling, weakness to lower legs. Review of Systems Review of Systems: All systems reviewed & are unremarkable except as noted in Subjective Physical Exam Physical Exam: VITALS: Reviewed. WEIGHT/BMI reviewed. GEN: Healthy appearing, well-developed, NAD. PSYCH: Good Judgment. AOx3. Normal memory, mood, and affect. HEENT -Head: NC/AT; -Eyes: PERRL, EOMI. No discharge or redn ess; -Ears: External ears are normal. -Nose: Normal nares. -Mouth and throat: MMM. Normal gums, muc kate, palate,. Good dentition. NECK: Supple, with no masses. CV: Sinus rhythm on tele, S1/S2 regular and without murmur, no swelling LUNGS: CTAB, no w/r/c. NAD ABD: Soft, tender to LUQ, hypoactive BS, no masses or organomegaly. : N/A SKIN: Warm, well perfused. No skin rashes or abnormal lesions. MSK: No deformities, Normal gait. EXT: No clubbing, cyanosis, or edema. NEURO: Ambulating with no limitations. Normal muscle strength and tone. No focal deficits. Results & Data Results & Data Vital Signs (Past 12 Hours) Vital Signs Temp Pulse Pulse Resp BP Pulse Ox O2 Del Method 10/27/25 07:00 36.5 C 77 18 101/64 92 Room Air 10/27/25 02:35 36.8 C 78 18 126/64 94 Room Air 10/26/25 23:46 36.8 C 65 18 113/56 L 93 Room Air 10/26/25 22:01 72 Laboratory Results Short CBC 10/27/25 Range/Units 04:44 WBC 17.55 H (4.8-10.8) K/ul Hgb 14.4 (14.0-18.0) g/dL Hct 41.1 L (42.0-52.0) % Plt Count 188 (130-400) K/uL BMP 10/27/25 04:44 Sodium 135 L Potassium 3.8 Chloride 105 Carbon Dioxide 24 BUN 20 Creatinine 0.96 Glucose 135 H Calcium 7.9 L
[2025-10-27 08:15] LABS: Magnesium 2.1 mg/dl (1.7-2.4)
--- NOTE | 2025-10-27 09:20 | Gastroenterology Progress Note ---
Date of Service October 27, 2025 Assessment & Plan (1) Acute lower GI bleeding: Plan: Seems to be improving. As mentioned before I think he either had ischemic colitis or an infectious enteritis but he is improving. Still feel elective colonoscopy the best way to approach this after he has recovered or if symptoms become chronic. Admission and Anticipated Discharge Date Admission Date: October 25, 2025 Subjective Says he feels "a lot better". Still having small "squirts" of blood. Hemoglobin around 14. WBC coming down Physical Exam Physical Exam: He looks well Constitutional: WD/WN, vitals as above Results & Data Vital Signs (Past 12 Hours) Vital Signs Temp Pulse Pulse Resp BP Pulse Ox O2 Del Method 10/27/25 07:39 Room Air 10/27/25 07:00 36.5 C 77 18 101/64 92 Room Air 10/27/25 02:35 36.8 C 78 18 126/64 94 Room Air 10/26/25 23:46 36.8 C 65 18 113/56 L 93 Room Air 10/26/25 22:01 72
[2025-10-27] MEDS: cefTRIAXone SODIUM 2,000 MG/50 ML BAG IV SCH (10:32)
[2025-10-28 03:27] VITALS: PULSE 79
[2025-10-28 07:20] VITALS: RESP 18; TEMP 97.5; O2SAT 91
--- NOTE | 2025-10-28 10:19 | Discharge Summary ---
<Statement entered by Parish Urrutia, DO - 10/28/25 15:29> Feeling well. he would like to go home. tolerating solids. Hgb is stable. reasonable to resume home coumadin due to risk of stroke. Can hold off bridging and allow gradual increase in INR given recent bleed. He will f/u with his GI doc as OP Seen and examined I spent a total of 23 minutes coordinating, documenting, and providing care for this patient excluding time spent in the performance of separately billed services. This included personally reviewing all current laboratories and imaging studies, medical reconciliation, outpatient chart review and discussion with specialists Discharge Summary Date of Service October 28, 2025 Principal Dx & Hospital Course #1 = Principal Diagnosis (1) Acute lower GI bleeding: (2) Colitis: (3) Rectal bleeding: Plan Patient is 80y/o M with PMHx significant for atrial fibrillation anticoagulated on Coumadin, HTN, BPH, KATE and obesity who presented to ED with c/o abdominal pain and rectal bleeding on 10/25/25. Acute lower GI bleeding P/w abdominal pain and rectal bleeding x 1 day s/p dose of mag citrate [employer] 2/2 constipation. Abd/pelvis CTA with diffuse colitis changes of the sigmoid colon, proctitis changes also noted. Patent vasculature. GI saw and evaluated the pt: suspect presentation c/w ischemic colitis related to mag citrate use. Could also be possible that pt has an acute infectious enteritis. Has been on IV Rocephin and Flagyl. Hgb remained stable, stools beginning to form. Abdominal pain greatly improved, lower GI bleeding slowly resolving. Tolerating low-fiber diet without issue. GI recommending elective outpatient colonoscopy for further evaluation once sx resolve >> pt to arrange with his primary resident programs assistant. Coumadin initially placed on hold however this can be resumed tomorrow given stable Hgb, resolving GI bleed. HTN Continue Norvasc, lisinopril. Atrial fibrillation Can resume Coumadin tomorrow, as per above. Follows with anticoagulation clinic back home (pt from [facility]). Will need repeat INR checked later this week >> pt to coordinate this with his PCP. Abnormal UA 2+ blood noted on UA. Recommend outpatient urology eval >> pt to arrange, reports started seeing urologist recently for BPH. KATE Continue CPAP HS. Hyperglycemia, improved Denies h/o DM, Hgb A1c 5.6% this admission. Healthy lifestyle changes recommended. BPH Continue tamsulosin. PCP: Jil Hutson DO [[facility]] Disposition: Pt is being DC'd home in stable condition with PCP, GI and urology f/u appts to be arranged. Patient seen in collaboration with Dr. Urrutia. Please see addendum. I spent a total of 62 minutes coordinating, documenting, and providing care for this patient excluding time spent in the performance of separately billed services or time spent by another provider/QHP. This included personally reviewing all current laboratories and imaging studies, medical reconciliation, outpatient chart review and discussion with specialists. Notes For Next Care Provider Will need to arrange GI follow-up for outpatient elective colonscopy. Also recommend outpatient urology eval for microscopic hematuria seen on UA. Medication Changes From Visit Augmentin Admission HPI Per Admitting Provider Patient is 80 year old male with PMH atrial fibrillation anticoagulated on Eliquis, HTN, BPH, KATE, obesity presented to ER with c/o abdominal pain and rectal bleeding today. Patient in town visiting family for the holiday. States has been having some intermittent LLQ abdominal pain for past couple of months and following with PCP and reports had outpatient CT pelvis that he thinks was unremarkable (report not available for review at this time). He reports is to have follow up with GI in couple of months. Patient states having constipation this week and last BM 3 days ago. Today having some LLQ discomfort. He states today drank prune juice and took 3/4 bottle of magnesium citrate. After had couple of loose BMs that were red bloody. Patient states since being in ER abdominal pain has decreased. Denies fever/chills, diaphoresis, N/V, TELLEZ, dizziness, CP, SOB, orthopnea, palpitations, cough, weakness, extremity edema, rashes, dysuria, hematuria. Denies NSAID or aspirin use. Discussed patient with ER physician and patient given Zosyn in ER. Reports rectal exam with red/maroon color blood. Admission Exam Per Admitting Provider General Appearance: Obese, no apparent distress Head: normocephalic, Atraumatic Eyes: normal inspection, EOMI Neck: supple, Trachea midline Respiratory/Chest: Normal breath sounds, CTA, No accessory muscle use Cardiovascular: S1, S2, No murmur Abdomen/GI:Soft, distended, left lower quadrant tender, Bowel sounds diminished, no guarding or rigidity Extremities/Musculoskeletal:normal inspection, no edema Neurologic/Psych:AAOX3, grossly no focal neurological deficits Skin: normal color, warm Discharge Exam General Appearance: Obese, no apparent distress Head: normocephalic, atraumatic Eyes: normal inspection, EOMI Neck: supple, trachea midline Respiratory/Chest: Normal breath sounds, CTAB, no accessory muscle use Cardiovascular: S1, S2, No murmur Abdomen/GI: Soft, nondistended, some LLQ tenderness to palpation, somewhat hypoactive BS, no guarding or rigidity Extremities/Musculoskeletal:normal inspection, no edema Neurologic/Psych:AAOX3, grossly no focal neurological deficits Skin: normal color, warm Updated Medication List Medication Instructions Recorded Confirmed Type amlodipine 10 mg tablet 10 mg PO DAILY 10/25/25 10/25/25 History brimonidine 0.2 % eye drops 1 drp ophthalmic (eye) DIRECTED 10/25/25 10/25/25 History latanoprost 0.005 % eye drops 1 drp ophthalmic (eye) HS 10/25/25 10/25/25 History lisinopril 10 mg tablet 10 mg PO DAILY 10/25/25 10/25/25 History omeprazole 40 mg capsule,delayed 40 mg PO DAILY 10/25/25 10/25/25 History release tamsulosin 0.4 mg capsule 0.4 mg PO QPM 10/25/25 10/25/25 History warfarin 5 mg tablet 5 mg PO Q OTHER DAY 10/25/25 10/25/25 History warfarin 5 mg tablet 7.5 mg PO Q OTHER DAY 10/25/25 10/25/25 History timolol 0.5 % eye drops 1 drp OPB DAILY 10/26/25 10/26/25 History amoxicillin 875 mg-potassium 1 tab PO BID #2 tabs 10/28/25 Rx clavulanate 125 mg tablet Hospital Stay Data Consultations 10/25/25 18:41 ED Decision to Admit Stat 10/25/25 20:33 Consult Gastroenterology Routine Diagnostic Imagining Performed 10/25/25 16:44 CT angio abdomen pelvis w con Stat Pending Results Patient Have Any Pending Studies at Discharge: No Discharge Instructions Given to Patient (Per Discharging Provider) Mr. Westland, you were admitted to [facility] with acute rectal bleeding. You were seen and evaluated by gastroenterology (GI) who suspects your rectal bleeding was secondary to ischemic colitis. Ischemic colitis is a transient reduction in blood flow to the colon. Symptoms include cramping, an urgent need to have a bowel movement, and bloody or dark stools. Treatment of ischemic colitis is supportive with IV fluids, bowel rest, and antibiotics. Many cases are not severe and the colon will heal on its own, often within one to two weeks. MEDICATION CHANGES: Augmentin - This is an antibiotic used to treat your suspected ischemic colitis. Please take this medication as prescribed. Your Coumadin was initially held due to your rectal bleeding. You can resume this on discharge beginning tomorrow, 10/29/2025. You will need to have your INR checked later this week, this can be arranged with your PCP. RECOMMENDATIONS FOR FOLLOW-UP: It is recommended that you have a colonoscopy with your primary resident programs assistant after your symptoms have resolved. It is also recommended that you have a follow-up appointment with your PCP. Please schedule these appointments ALEKSANDRA. Seek medical attention if you have: * temperature above 101F * chest pain or trouble breathing * abdominal pain, nausea, vomiting * diarrhea, dark stools or bloody stools * any unanswered questions or concerns Call 911 if symptoms are severe. Please take good care of yourself. It has been a pleasure taking care of you. If you have any questions regarding your recent hospitalization, please contact [facility] and request a [facility] Hospitalist @ [phone]. Total Time Total Time Spent Total Time Spent (In Minutes): 62
[2025-10-28 11:32] VITALS: BP 142/79
[2025-10-28] MEDS: ONDANSETRON INJ 2 MG/ML 2 ML VIAL IV STA (12:41)
== END 2025-10-28 13:06 | disposition home or self-care (01) | DRG 394 ==
LOC: ED 16:34 → SUATTDRO 18:46 → 2S 18:46